=== PATIENT | male | born 1980 | race Caucasian/White ===

== ENCOUNTER 2017-01-09 14:53 | Emergency (ER) | payer SELFPAY | END 2017-01-09 16:13 | disposition home or self-care (01) | LOC: ER1 14:53 | DX: S61.412A Laceration without foreign body of left hand, initial encounter (principal); Z23 Encounter for immunization; F17.290 Nicotine dependence, other tobacco product, uncomplicated; W26.8XXA Contact with other sharp object(s), not elsewhere classified, initial encounter; Y92.69 Other specified industrial and construction area as the place of occurrence of the external cause; Y99.0 Civilian activity done for income or pay | CPT/HCPCS: 12001; 90471; 99283 ==